=== PATIENT | female | born 1990 | race Two or more races ===

== ENCOUNTER 2024-09-17 10:25 | Emergency (ER) | payer MEDICAID, SELFPAY ==
[2024-09-17 10:43] VITALS: BP 110/70; PULSE 78; RESP 16; TEMP 37.2; O2SAT 100; BMI 28.5
--- NOTE | 2024-09-17 10:56 | PD.EDRME ---
Rapid Medical Screening Exam RME Arrival date/time: 09/17/24 10:25 34-year-old female presents to the emergency department complains of vaginal bleeding patient reports passing clots being approximately 13 weeks Chief Complaint: Vaginal Bleeding Time Seen by Provider: 09/17/24 10:27 Vital signs: Vital Signs Temperature 98.9 F 09/17/24 10:43 Pulse Rate 78 09/17/24 10:43 Respiratory Rate 16 09/17/24 10:43 Blood Pressure 110/70 09/17/24 10:43 Pulse Oximetry (%) 100 09/17/24 10:43 Oxygen Delivery Method Room Air 09/17/24 10:43
--- NOTE | 2024-09-17 11:06 | XR_ITS ---
Examination: Complete OB ultrasound, less than 14 weeks, transabdominal Date and time of exam: September 17, 2024 1154 hrs. Indications: Heavy vaginal bleeding beginning this morning Technique: Obstetrical ultrasound images less than 14 weeks performed via transabdominal imaging Findings: Uterus 12.3 cm endometrial stripe 2.5 cm No intrauterine gestation, no uterine mass Right ovary 3.7 cm arterial flow Left ovary 4.0 cm arterial flow Impression: No uterine mass or intrauterine gestation If retained parts of conception are a clinical consideration, suggest transvaginal pelvic sonography follow-up
[2024-09-17 11:17] LABS: Basophils % (Auto) 0 % (0-2.5); Eosinophils # (Auto) 0.1 Thou/mm3 (0.0-0.5); Eosinophils % (Auto) 1 % (0-10); Hematocrit 40.9 % (36.0-46.0); Hemoglobin 14.4 g/dL (12.0-16.0); Immature Granulocytes % (Auto) 0 % (0-0); Immature Granulocytes Auto 0.03 Thou/mm3 (0.00-0.00); Lymphocytes # (Auto) 1.8 Thou/mm3 (1.0-4.8); Lymphocytes % (Auto) 19 % (10-50); Mean Corpuscular HGB Conc 35.2 g/dl (31.0-37.0); Mean Corpuscular Hemoglobin 30.5 pg (25.0-35.0); Mean Corpuscular Volume 87 fL (80-100); Monocytes # (Auto) 0.4 Thou/mm3 (0.0-0.8); Monocytes % (Auto) 4 % (0-12); Neutrophils # (Auto) 7.2 Thou/mm3 (1.8-7.7); Neutrophils % (Auto) 76 % (37-80); Nucleated Red Blood Cell % 0 /100 WBC (0); Platelet Count 273 Thou/mm3 (140-440); RDW Standard Deviation 39.2 fL (36.4-46.3); Red Blood Count 4.72 Miln/mm3 (4.00-5.20); White Blood Count 9.6 Thou/mm3 (3.6-11.0)
--- NOTE | 2024-09-17 12:28 | PD.EDADULT ---
ED General RME/HPI General Chief complaint: Vaginal Bleeding Stated complaint: VAG BLEEDING, LOWER ABD CRAMPS Time Seen by Provider: 09/17/24 10:27 Arrival date/time: 09/17/24 10:25 CC: I think I passed my baby . Vaginal bleeding and low center abdominal cramping HPI patient is estimated 13 weeks G6, P4, who states that she passed a large clot this morning after experiencing spotting 2 days ago and then heavy bleeding this morning with low back pain abdominal cramping. Patient denies LOC LOC nausea vomiting or diarrhea. RME / HPI RME / HPI narrative: 09/17/24 10:25 34-year-old female presents to the emergency department complains of vaginal bleeding patient reports passing clots being approximately 13 weeks Related Data Home Medications ?Medication ?Instructions ?Recorded ?Confirmed No Known Home Medications 01/27/18 01/27/18 Allergies Allergy/AdvReac Type Severity Reaction Status Date / Time No Known Allergies Allergy Verified 01/27/18 13:48 Review of Systems Review of Systems Narrative Review of Systems: GEN: No fever, no chills, no weight loss EYES: No discharge, no visual changes, no pain HEENT: No ear pain, no congestion, no sore throat PULM: No shortness of breath, no cough, no congestion CV: No chest pain, no dyspnea on exertion, no palpitations GI: No nausea, no vomiting, no diarrhea, no pain, no constipation : No frequency, no urgency, no dysuria MUSC/SKEL: No joint pain, no back pain SKIN: No rash PSYCH: No hallucinations, no depression HEME/LYMPH: No easy bleeding or bruising tendencies NEURO: No weakness, no headache Past Medical History Social History SMOKING STATUS: Never smoker ED Exam Narrative Physical exam: [General: Obese not in cot no acute distress Head normocephalic HEENT: Within acceptable limits Neck is supple nontender Chest equal chest rise nontender to palpation Respiratory: Clear to auscultation no wheezes crackles or rubs CV: Rate rhythm is regular no murmurs rubs or clicks Abdomen is soft nontender no masses positive bowel sounds all 4 quadrants Back: No CVA tenderness no spinous process tenderness from cervical spine thoracic and lumbar spine Skin: Intact no petechiae rash induration ulceration or crepitus Extremities: Moving all extremity against resistance cap refill less than 2 seconds neurosensory intact Neuro: Awake alert oriented x3 Glascow coma 15 no focal deficits] Course Quality Measures none Orders Category Date Time Status US OB <= 14 weeks fetus Stat Exams 09/17/24 11:06 Completed ABO/RH Type Stat Lab 09/17/24 10:55 Completed Beta HCG,Quantitative Stat Lab 09/17/24 10:55 Completed CBC Stat Lab 09/17/24 10:55 Completed Comprehensive Metabolic Panel Stat Lab 09/17/24 10:55 Completed Referral Canopy Inspector NOW 09/17/24 12:56 Active Vital Signs Vital signs: Vital Signs Temperature 98.9 F 09/17/24 10:43 Pulse Rate 78 09/17/24 10:43 Respiratory Rate 16 09/17/24 10:43 Blood Pressure 110/70 09/17/24 10:43 Pulse Oximetry (%) 100 09/17/24 10:43 Oxygen Delivery Method Room Air 09/17/24 10:43 [facility] Patient data External records reviewed:: [facility] previous records Clinical information provided by:: patient Social determinants that could affect healthcare access:: none Patient has the following chronic illnesses:: None How is presenting disease/condition affected by chronic disease/condition?: uneffected by Evaluation data The following diagnostics were reviewed and interpreted by me:: lab results Lab and/or radiology exams considered but not ordered:: CBC shows no leukocytosis no anemia or thrombocytopenia Quantitative hCG is 6200 Ultrasound shows the vault is empty. . Interpretation Summary: SAB completed Medications Medications considered but not ordered:: None Medication administrations:: None Consultations Consultation(s) initiated? (list below): No Diagnosis Differential Diagnosis ED Complaint MDM: SAB incomplete, threatened miscarriage Most likely diagnosis given after review of the tests above:: SAB completed Admission Indicated Admission indicated?: not indicated Explain why admission is indicated or not indicated:: Stable for discharge Admission Request Was there a request for admission?: No Disposition Plan Disposition Plan: Discharge Discharge Attestation Discharge Attestation: The patient and all family members were given an opportunity to ask questions and understood the discharge instructions. Discharge instructions specifically effects, indications for sooner follow up or return to the emergency department, and the expected course of current diagnosis. Patient condition: Stable Medical Decision Making Differential Diagnosis Differential Diagnosis: SAB incomplete, threatened miscarriage Lab Data 09/17/24 10:55 09/17/24 10:55 Labs: Lab Results 02/26/25 Range/Units 10:55 WBC 9.6 (3.6-11.0) Thou/mm3 RBC 4.72 (4.00-5.20) Miln/mm3 Hgb 14.4 (12.0-16.0) g/dL Hct 40.9 (36.0-46.0) % MCV 87 (80-100) fL MCH 30.5 (25.0-35.0) pg MCHC 35.2 (31.0-37.0) g/dl RDW Std Deviation 39.2 (36.4-46.3) fL Plt Count 273 (140-440) Thou/mm3 Neut % (Auto) 76 (37-80) % Lymph % (Auto) 19 (10-50) % Kimball % (Auto) 4 (0-12) % Eos % (Auto) 1 (0-10) % Baso % (Auto) 0 (0-2.5) % Neut # (Auto) 7.2 (1.8-7.7) Thou/mm3 Lymph # (Auto) 1.8 (1.0-4.8) Thou/mm3 Kimball # (Auto) 0.4 (0.0-0.8) Thou/mm3 Eos # (Auto) 0.1 (0.0-0.5) Thou/mm3 Baso # (Auto) 0.0 (0.0-0.2) Thou/mm3 Immature Gran # (Auto) 0.03 H (0.00-0.00) Thou/mm3 Absolute Nucleated RBC 0.00 (0.00-0.00) Thou/mm3 Immature Gran % 0 (0-0) % Nucleated RBC % 0 (0) /100 WBC Sodium 139 (136-145) mMol/L Potassium 3.3 L (3.4-5.1) mMol/L Chloride 106 (98-107) mMol/L Carbon Dioxide 23.5 (20.0-31.0) mMol/L Anion Gap 10 (7-16) BUN 11 (9-23) mg/dL Creatinine 0.6 (0.6-1.3) mg/dL Estim Creat Clear Calc 110.1 (>60) mL/min eGFR > 60 (60 - ) See Note BUN/Creatinine Ratio 18 (12-20) Ratio Glucose 96 (74-106) mg/dL Calculated Osmolality 276 (275-295) Calcium 9.5 (8.3-10.6) mg/dL Corrected Calcium 9.5 (8.5-10.1) mg/dL Total Bilirubin 0.6 (0.3-1.2) mg/dL AST 24 (0-34) U/L ALT 23 (10-49) U/L Alkaline Phosphatase 87 (46-116) U/L Total Protein 7.1 (5.7-8.2) gm/dL Albumin 4.3 (3.5-5.0) gm/dL Globulin 2.8 (2.3-3.5) gm/dL Albumin/Globulin Ratio 1.5 (1.2-2.2) Beta HCG, Quant 6426 (<5.0) mIU/mL Blood Type O Positive Blood Bank Wristband ID Yes Discharge Plan Plan Patient Disposition: HOME (Self Care) Patient condition on transfer: Stable Prescriptions/Referrals Prescriptions/Med Rec: No Action No Known Home Medications Referrals: Cruzito Campuzano MD [Primary Care Provider] - In 1 week Problem List Clinical Impression: Miscarriage Patient/Caregiver Discharge Instructions Other Activity Instructions:: Follow-up with your PRINCIPAL CYBER ENGINEER in the next 4 to 5 days to get a recheck of your human growth hormone level. If there is a worsening of symptoms including heavy vaginal bleeding, fever vaginal pain or vaginal discharge or that is abnormal return the emergency room immediately for further evaluation. Education Materials: Miscarriage Trying Again, ED MISCARRIAGE Completed Print Language: Yi Stand Alone Forms: Zakia Award Info., Work/School Release, Patient Portal Info Letter BJ/NICKIE Supervising Physician BJ/NICKIE Supervising Physician: Beni Nathan ENP
--- NOTE | 2024-09-17 12:48 | PC.NURSE ---
PT MOVED FROM LOBBY TO ED ROOM 19 AT THIS TIME; WHILE PT AT ULTRASOUND, PT PASSED CONTENTS. CONTENTS AND POSSIBLE PLACENTA PLACED IN BIOHAZARD BUCKET WITH NS AND THEN PLACED IN BIOHAZARD BAG, PER SEB ZEPEDA'S ORDERS. CONTENTS MEASURED ABOUT 3CM IN LENGTH AND 1.5CM IN WIDTH. REFERRAL TO ANESTHESIOLOGIST PHYSICIAN MADE.
--- NOTE | 2024-09-17 12:57 | PC.NURSE ---
RN CALLED DONOR NETWORK AND SPOKE TO LI AT THIS TIME; PER LI, FETUS IS NOT A CANDIDATE A DONOR; REFERRAL # IS [id number].
[2024-09-17 12:59] VITALS: BP 106/64; PULSE 69; RESP 19; TEMP 37.4; O2SAT 100
--- NOTE | 2024-09-17 13:11 | PC.NURSE ---
PT OFFERED CAPACITY PLANNING ENGINEER/DIRECTOR PROSPECT SERVICES AT THIS TIME; PER PT, NO I DON'T WANT TO SPEAK TO A DIRECTOR PROSPECT OR A CAPACITY PLANNING ENGINEER RIGHT NOW.
[2024-09-17 13:15] LABS: Alanine Aminotransferase 23 U/L (10-49); Albumin, Serum 4.3 gm/dL (3.5-5.0); Albumin/Globulin Ratio 1.5 (1.2-2.2); Alkaline Phosphatase 87 U/L (46-116); Aspartate Amino Transferase 24 U/L (0-34); BUN/Creatinine Ratio 18 Ratio (12-20); Beta HCG,Quantitative 6426 mIU/mL (<5.0); Bilirubin,Total 0.6 mg/dL (0.3-1.2); Blood Urea Nitrogen 11 mg/dL (9-23); Calcium 9.5 mg/dL (8.3-10.6); Calcium (Corrected) 9.5 mg/dL (8.5-10.1); Carbon Dioxide 23.5 mMol/L (20.0-31.0); Creatinine (Component) 0.6 mg/dL (0.6-1.3); Estimated Creatinine Clearance 110.1 mL/min (>60); Globulin 2.8 gm/dL (2.3-3.5); Glucose 96 mg/dL (74-106); Total Protein 7.1 gm/dL (5.7-8.2); eGFR > 60 See Note
[2024-09-17 13:38] LABS: Anion Gap 10 (7-16); Chloride 106 mMol/L (98-107); Osmolality,Calculated 276 (275-295); Potassium 3.3 mMol/L (3.4-5.1); Sodium 139 mMol/L (136-145)
--- NOTE | 2024-09-17 13:51 | PC.CC ---
Ingris CALVILLO was consulted by DEIDRE Graham to provide emotional support to patient and significant other, Tunde for demise. Ingris CALVILLO made [id number] contact with patient. ROGERW introduced self, role, and reason for visit.?Patient appeared alert and oriented to self, location, and situation.?ASW provided emotional support to patient and provided [facility] [employer] support group information to patient and significant other, Tunde. Patient and SO were receptive to information. Patient reports she has 3 other a 15 year-old daughter and two sons ages 13 and 7. Patient reports she has emotional support from extended family.
[2024-09-17 14:05] VITALS: BP 115/77; PULSE 76; RESP 16; TEMP 37.2; O2SAT 100
--- NOTE | 2024-09-17 15:14 | PC.NURSE ---
RN SPOKE TO PT PRIOR TO LEAVING FACILITY AND PT DECIDED TO HAVE REMNANTS SENT TO PATHOLOGY. RN SEND REMNANTS AND POSSIBLE PLACENTA TO PATHOLOGY LAB AT THIS TIME.
== END 2024-09-17 15:02 | disposition home or self-care (01) ==
PROVIDERS: Nurse Practitioner Primary Care; Emergency Provider Emergency Medicine; PCP Family Medicine
DX: O03.9 Complete or unspecified spontaneous abortion without complication (principal)
CPT/HCPCS: 36415; 76801; 80053; 84702; 85025; 86900; 86901; 99284

== ENCOUNTER 2025-01-19 02:59 | Emergency (ER) | payer MEDICAID, SELFPAY ==
[2025-01-19 03:00] VITALS: BMI 28.3
[2025-01-19 03:10] VITALS: BP 119/81; PULSE 84; RESP 17; TEMP 37.2; O2SAT 98
--- NOTE | 2025-01-19 03:19 | PD.EDRME ---
Rapid Medical Screening Exam RME Arrival date/time: 01/19/25 02:59 Chief Complaint: Abdominal Pain Time Seen by Provider: 01/19/25 03:07 Vital signs: Vital Signs Temperature 98.9 F 01/19/25 03:10 Pulse Rate 84 01/19/25 03:10 Respiratory Rate 17 01/19/25 03:10 Blood Pressure 119/81 01/19/25 03:10 Pulse Oximetry (%) 98 01/19/25 03:10 Oxygen Delivery Method Room Air 01/19/25 03:10 RME Narrative: Pelvic cramping since last night. No vaginal bleeding. Patient reports 7 weeks OB. LMP 5/9. A2
[2025-01-19 03:42] LABS: Basophils % (Auto) 0 % (0-2.5); Eosinophils # (Auto) 0.1 Thou/mm3 (0.0-0.5); Eosinophils % (Auto) 1 % (0-10); Hematocrit 38.7 % (36.0-46.0); Hemoglobin 13.9 g/dL (12.0-16.0); Immature Granulocytes % (Auto) 0 % (0-0); Immature Granulocytes Auto 0.02 Thou/mm3 (0.00-0.00); Lymphocytes # (Auto) 2.1 Thou/mm3 (1.0-4.8); Lymphocytes % (Auto) 25 % (10-50); Mean Corpuscular HGB Conc 35.9 g/dl (31.0-37.0); Mean Corpuscular Hemoglobin 30.7 pg (25.0-35.0); Mean Corpuscular Volume 85 fL (80-100); Monocytes # (Auto) 0.5 Thou/mm3 (0.0-0.8); Monocytes % (Auto) 6 % (0-12); Neutrophils # (Auto) 5.8 Thou/mm3 (1.8-7.7); Neutrophils % (Auto) 69 % (37-80); Nucleated Red Blood Cell % 0 /100 WBC (0); Platelet Count 265 Thou/mm3 (140-440); RDW Standard Deviation 36.7 fL (36.4-46.3); Red Blood Count 4.53 Miln/mm3 (4.00-5.20); White Blood Count 8.5 Thou/mm3 (3.6-11.0)
[2025-01-19 03:57] LABS: Alanine Aminotransferase 26 U/L (10-49); Albumin, Serum 4.3 gm/dL (3.5-5.0); Albumin/Globulin Ratio 1.6 (1.2-2.2); Alkaline Phosphatase 68 U/L (46-116); Anion Gap 7 (7-16); Aspartate Amino Transferase 24 U/L (0-34); BUN/Creatinine Ratio 14 Ratio (12-20); Bilirubin,Total 0.6 mg/dL (0.3-1.2); Blood Urea Nitrogen 10 mg/dL (9-23); Calcium 9.1 mg/dL (8.3-10.6); Calcium (Corrected) 9.1 mg/dL (8.5-10.1); Carbon Dioxide 24.8 mMol/L (20.0-31.0); Chloride 107 mMol/L (98-107); Creatinine (Component) 0.7 mg/dL (0.6-1.3); Globulin 2.7 gm/dL (2.3-3.5); Glucose 86 mg/dL (74-106); Osmolality,Calculated 275 (275-295); Potassium 3.3 mMol/L (3.4-5.1); Sodium 139 mMol/L (136-145); eGFR > 60 See Note
[2025-01-19 04:09] LABS: Collection Type, Urine Clean Catch
[2025-01-19 04:12] LABS: Beta HCG,Quantitative 3768 mIU/mL (<5.0)
[2025-01-19 04:13] LABS: Bilirubin,Urine Negative (Negative); Blood,Urine Negative (Negative); Clarity,Urine Clear (Clear/Hazy); Color,Urine Yellow (Lt Yel-Yel); Glucose, Urine Negative (Negative); Hyaline Casts,Urine < 1 /hpf (0-1); Ketones,Urine 2+ (Negative); Leukocyte Esterase,Urine Negative (Negative); Nitrite,Urine Negative (Negative); Protein,Urine 1+ (Neg - Trace); RBC,Urine 7 /hpf (0-3); Squamous Epithelial Cell,Urine 3 /hpf (0-5); WBC,Urine 1 /hpf (0-5)
--- NOTE | 2025-01-19 04:15 | XR_ITS ---
Examination: OB Transvaginal ultrasound of the pelvis, complete Technique: Transvaginal sonographic images pelvis performed using gilbert scale imaging Exam date and time: January 19, 2025, 0528 hours INDICATIONS: Vaginal bleeding and pelvic pain onset today FINDINGS: Uterus 10.2 cm endometrial stripe 0.95 cm No uterine mass or intrauterine gestation Right ovary 2.8 cm arterial flow Left ovary 2.8 cm arterial flow IMPRESSION: No uterine mass or intrauterine gestation
[2025-01-19 04:19] LABS: HCG Qualitative,Urine Positive
--- NOTE | 2025-01-19 04:44 | PD.EDABDPN ---
ED Abdominal Pain RME/HPI General Chief Complaint: Abdominal Pain Stated complaint: ABD CRAMPING, 7 WKS Time seen by provider: 01/19/25 03:07 Arrival date/time: 01/19/25 02:59 RME / HPI RME / HPI narrative: Pelvic cramping since last night. No vaginal bleeding. Patient reports 7 weeks OB. LMP 11/28. Emiliano -------- Dr. Yan?s Main ED Evaluation: 34yo female A2 who is ~7 weeks presents to the ED for a chief complaint of pelvic cramping x yesterday. Patient states she started having intermittent pelvic cramping yesterday, reporting it became more persistent today, so she came in for evaluation. Patient denies any vaginal bleeding, fever, chills, cough, chest pain, shortness of breath or any other associated symptoms. Denies any tobacco, alcohol or illicit drug use. She is taking vitamins. Denies any recent travel. NKA. Related Data Home Medications ?Medication ?Instructions ?Recorded ?Confirmed No Known Home Medications 01/27/18 01/27/18 Allergies Allergy/AdvReac Type Severity Reaction Status Date / Time No Known Allergies Allergy Verified 01/19/25 03:00 Review of Systems Review of Systems Systems Reviewed: All systems reviewed, normal except as documented Past Medical History Past Medical History CARDIAC: Negative Congestive Heart Failure RESPIRATORY: Negative Chronic Obstructive Pulmonary Disease (COPD) GENITOURINARY: Negative Renal Disease ENDOCRINE: Negative Diabetes Mellitus Type 1 or Diabetes Mellitus Type 2 Family History FAMILY HISTORY: Positive Family Cancer (PT'S GRANDMA LUNG CANCER) Social History SMOKING STATUS: Never smoker ED Exam Narrative Physical exam: GEN. APPEARANCE: The patient is alert awake oriented X-3 in no distress, lying down comfortably, does not look ill/toxic. Patient has good eye contact. Patient is cooperative. VITALS: All vitals were reviewed and the pulse ox is 98% on room air which is normal according to my interpretation. HEENT: Normocephalic, atraumatic. Pupils are equal and reactive. Oral mucosa is moist. Patent Nares NECK: Supple, nontender, no thyromegaly, no meningismus, no JVD CHEST: Symmetrical, atraumatic, and with equal expansion , Nontender on palpation no deformity and no crepitus. CARDIOVASCULAR: Heart regular rhythm no murmur or gallop rub or extra beats. LUNGS: Clear to auscultation bilaterally with symmetrical chest rise. No laboring tachypnea or wheezing. No intercostal subcostal retraction. No rales and no rhonchi. ABDOMEN: Soft, flat, nontender to palpation, no guarding or rebound tenderness. There are no abnormal masses palpated. Active and normal bowel sounds. EXTREMITIES: Nontender. No edema. No cyanosis. Patient is able to move all 4 extremities well, with full ROM and good CSM. SKIN: Warm and dry, no jaundice or rashes noted. NEURO: Patient is SHABAZZ x 4, Cranial nerves II through XII grossly intact. There is no focal neurologic deficits noted. GCS is 15, PNS and CONCRETE STONE FINISHER appear grossly intact. PSYCHIATRIC: Patient is in normal mood and affect. Course Quality Measures none Orders Category Date Time Status US OB transvaginal Stat Exams 01/19/25 04:15 Taken Beta HCG,Quantitative Stat Lab 01/19/25 03:24 Completed CBC Stat Lab 01/19/25 03:24 Completed CMP [Comprehensive Metabolic Panel] Stat Lab 01/19/25 03:24 Completed HCG Qualitative,Urine Stat Lab 01/19/25 03:38 Completed UA [Urinalysis] Stat Lab 01/19/25 03:38 Completed Vital Signs Vital signs: Vital Signs Temperature 98.9 F 01/19/25 03:10 Pulse Rate 84 01/19/25 03:10 Respiratory Rate 17 01/19/25 03:10 Blood Pressure 119/81 01/19/25 03:10 Pulse Oximetry (%) 98 01/19/25 03:10 Oxygen Delivery Method Room Air 01/19/25 03:10 Abdominal Pain MDM MDM Narrative MDM Narrative:: Scribe Attestation: 01/19/25 - Shalonda Fraga am scribing for and in the presence of Dr. Yan. Patient is a 34-year-old female aborta 2 at approximately 7 weeks gestation is in the emergency department with concerns for abdominal pain. Patient denies any vaginal bleeding. Vital signs and exam as listed. Concern for threatened miscarriage, urinary tract infection, pancreatitis among others we did labs, will be ultrasound. Labs without acute hematologic or significant metabolic abnormality. At this time patient presented transition care over to oncoming provider pending OB ultrasound and safe dispo Patient data External records reviewed:: [facility] previous records (Per chart review, patient was seen here on 09/17/24 for miscarriage.) Clinical information provided by:: patient Social determinants that could affect healthcare access:: none Patient has the following chronic illnesses:: none How is presenting disease/condition affected by chronic disease/condition?: no chronic disease Evaluation data The following diagnostics were reviewed and interpreted by me:: lab results and radiology exam(s) Lab and/or radiology exams considered but not ordered:: none Interpretation Summary: CBC normal, Potassium 3.3, HCG is negative, UA shows 1+ protein and 2+ ketones. Ultrasound pending at signout. Medications / Prescriptions Medications or Prescriptions considered but not ordered:: none Medication administrations:: none Consultations Consultation(s) initiated? (list below): No Diagnosis Differential diagnosis abdominal pain: pancreatitis and other (threatened , UTI) Most likely diagnosis given after review of the tests above:: see clinical impression below Admission Indicated Admission indicated?: not indicated Admission Request Was there a request for admission?: No Disposition Plan Disposition Plan: other (specify) (Signed out to the next oncoming provider at 0600 pending OB transvaginal ultrasound.) Discharge Plan Prescriptions/Referrals Prescriptions/Med Rec: No Action No Known Home Medications Referrals: Cruzito Campuzano MD [Primary Care Provider] - In 1 week Problem List Clinical Impression: Pelvic pain Patient/Caregiver Discharge Instructions Print Language: Armenian
--- NOTE | 2025-01-19 06:33 | PRELIM_ITS ---
Pelvic ultrasound (transvaginal). January 19, 2025 0528 hours Clinical history: 7 weeks ob, pelvic pain Technique: Real-time ultrasound was performed using Duplex scanning including arterial inflow, venous outflow, color and spectral Doppler analysis of both ovaries. Comparison: No prior study is available for comparison. Findings: The uterus is normal in size measuring 10.2 x 6.2 x 7.2 cm. The endometrium is thickened and measures 9 cm. No intrauterine gestational sac is seen at this time. There are small cysts in the cervix, the largest measuring 0.8 x 0.5 x 0.8 cm, likely representing nabothian cysts. The right ovary measures 2.8 x 1.5 x 2 cm and is unremarkable. The left ovary measures 2.8 x 1.6 x 2.6 cm and is unremarkable. No adnexal mass is demonstrated. There is trace free fluid in the cul-de-sac. Impression: No evidence of intrauterine gestation at this time. Possibilities include very early intrauterine , recent or occult ectopic gestation. Recommend correlation with serum beta hCG and sonographic follow up. No evidence of ovarian torsion on the submitted images. Other findings as described above. Report Electronically Signed By: Mars Agosto 01/19/2025 6:33:17 AM [EST]
[2025-01-19 07:55] VITALS: BP 117/65; PULSE 71; RESP 18; TEMP 36.9; O2SAT 100
== END 2025-01-19 07:55 | disposition home or self-care (01) ==
PROVIDERS: Physician Assistant; Emergency Provider Emergency Medicine; PCP Family Medicine
DX: O26.891 Other specified pregnancy related conditions, first trimester (principal); R10.2 Pelvic and perineal pain; Z3A.01 Less than 8 weeks gestation of pregnancy
CPT/HCPCS: 36415; 76817; 80053; 81001; 81025; 84702; 85025; 99284

== ENCOUNTER 2025-01-21 06:07 | Day surgery (SDC) | payer MEDICAID, SELFPAY ==
[2025-01-21] VITALS (7 sets, daily range): BP systolic 87–110; BP diastolic 51–67; PULSE 78–102; RESP 15–20; TEMP 36.4–36.7; O2SAT 99–100; BMI 25.5
--- NOTE | 2025-01-21 06:21 | PD.EDRME ---
Rapid Medical Screening Exam RME Arrival date/time: 01/21/25 06:07 34-year-old female with no known medical history presents to the emergency room with a chief complaint of dizziness, left-sided pelvic pain, vaginal bleeding x 2 days. Patient is currently 7 weeks . I have greeted and performed a focused initial assessment of this patient. A comprehensive ED assessment and evaluation of the patient, analysis of all test results, and completion of the medical decision making process will be conducted by additional ED providers. Chief Complaint: Abdominal Pain Time Seen by Provider: 01/21/25 06:10 Vital signs: Vital Signs Temperature 97.9 F 01/21/25 06:08 Pulse Rate 96 01/21/25 06:08 Respiratory Rate 17 01/21/25 06:08 Blood Pressure 87/55 L 01/21/25 06:08 Pulse Oximetry (%) 99 01/21/25 06:08 Oxygen Delivery Method Room Air 01/21/25 06:08 Vital signs reviewed by provider: Yes
[2025-01-21] MEDS: SODIUM CHLORIDE 0.9% 1000 ML 1,000 ML 999 ML IV (06:41)
[2025-01-21 06:50] LABS: Basophils # (Auto) 0.0 Thou/mm3 (0.0-0.2); Basophils % (Auto) 0 % (0-2.5); Eosinophils # (Auto) 0.1 Thou/mm3 (0.0-0.5); Eosinophils % (Auto) 2 % (0-10); Hematocrit 39.0 % (36.0-46.0); Hemoglobin 13.7 g/dL (12.0-16.0); Immature Granulocytes Auto 0.03 Thou/mm3 (0.00-0.00); Lymphocytes # (Auto) 2.8 Thou/mm3 (1.0-4.8); Lymphocytes % (Auto) 30 % (10-50); Mean Corpuscular HGB Conc 35.1 g/dl (31.0-37.0); Mean Corpuscular Hemoglobin 30.8 pg (25.0-35.0); Mean Corpuscular Volume 88 fL (80-100); Monocytes # (Auto) 0.5 Thou/mm3 (0.0-0.8); Monocytes % (Auto) 6 % (0-12); Neutrophils # (Auto) 5.7 Thou/mm3 (1.8-7.7); Neutrophils % (Auto) 62 % (37-80); Nucleated Red Blood Cell # 0.00 Thou/mm3 (0.00-0.00); Nucleated Red Blood Cell % 0 /100 WBC (0); Platelet Count 238 Thou/mm3 (140-440); RDW Standard Deviation 38.2 fL (36.4-46.3); Red Blood Count 4.45 Miln/mm3 (4.00-5.20); White Blood Count 9.2 Thou/mm3 (3.6-11.0)
--- NOTE | 2025-01-21 06:52 | PD.EDABDPN ---
ED Abdominal Pain RME/HPI General Chief Complaint: Abdominal Pain Stated complaint: LOWER ABD PAIN,SPOTTING Time seen by provider: 01/21/25 06:10 Arrival date/time: 01/21/25 06:07 RME / HPI RME / HPI narrative: 01/21/25 06:07 34-year-old female with no known medical history presents to the emergency room with a chief complaint of dizziness, left-sided pelvic pain, vaginal bleeding x 2 days. Patient is currently 7 weeks . I have greeted and performed a focused initial assessment of this patient. A comprehensive ED assessment and evaluation of the patient, analysis of all test results, and completion of the medical decision making process will be conducted by additional ED providers. DR. HICKEY MAIN ED EVALUATION 34 year old female patient who is currently 7 weeks gestational age, A2, presents to the ED for evaluation of worsening pelvic pain and vaginal bleeding beginning 2 days ago. Pain described as cramping in sensation that is located most to the left lower abdomen/pelvic region. Accompanied by dizziness and nausea. Patient reports she was evaluated here 2 days ago when symptoms first began. During ED visit she had a positive test with an ultrasound showing no intrauterine . Was advised to follow up in 2 days for repeat hcg and ultrasound. Denies fevers, chills, or urinary symptoms. No previous abdominal surgeries reported. Related Data Previous Rx's ?Medication ?Instructions ?Recorded hydrocodone 5 mg-acetaminophen 325 1 tab PO Q6H PRN pain #20 tabs 01/21/25 mg tablet Allergies Allergy/AdvReac Type Severity Reaction Status Date / Time No Known Allergies Allergy Verified 01/21/25 06:11 Review of Systems Review of Systems Systems Reviewed: All systems reviewed, normal except as documented Past Medical History Past Medical History CARDIAC: Negative Congestive Heart Failure RESPIRATORY: Negative Chronic Obstructive Pulmonary Disease (COPD) GENITOURINARY: Negative Renal Disease ENDOCRINE: Negative Diabetes Mellitus Type 1 or Diabetes Mellitus Type 2 Family History FAMILY HISTORY: Positive Family Cancer (PT'S GRANDMA LUNG CANCER) Social History SMOKING STATUS: Never smoker ED Exam Narrative Physical exam: GENERAL APPEARANCE: alert and oriented x 4, well-developed, well-nourished HEENT: Normocephalic, atraumatic; pupils equal, round, reactive to light; EOMI; mucous membranes pink, moist; oropharynx clear NECK: Supple LUNGS: CTABL; no wheezes, no rales, no rhonchi HEART: Regular rate, regular rhythm; normal S1, S2; no murmurs ABDOMEN: non distended; normal BS; soft, tenderness in the lower abdomen bilaterally, no guarding, no rebound; no masses, no organomegaly, no hernia BACK: no CVA tenderness EXTREMITIES: atraumatic; no edema NEUROLOGIC: awake; alert and oriented x4; cranial nerves II-XII grossly intact; no focal sensory or motor deficits PSYCHIATRIC: appropriate mood and affect SKIN: warm, dry, normal color; no rashes Course Quality Measures none Orders Category Date Time Status Patient Condition Routine Admission 01/21/[address] in Surgical Day Care Routine Admission 01/21/25 07:37 Active Consent [Obtain Written Consent For:] .NOW Care 01/21/25 07:23 Completed DC Home When Criteria Met . Care 01/21/25 07:43 Completed Insert IV STAT Care 01/21/25 06:23 Completed Discharge Routine Discharge 01/21/25 08:34 Active Beta HCG,Quantitative Stat Lab 01/21/25 06:30 Completed CBC Stat Lab 01/21/25 06:30 Completed CMP [Comprehensive Metabolic Panel] Stat Lab 01/21/25 06:30 Completed Type and Screen Stat Lab 01/21/25 07:29 Completed Acetaminophen Ivpb [Ofirmev Inj] 100 ml Med 01/21/25 08:14 Discontinued IV .STK-MED Albuterol/Ipratr Rt Negar [Duoneb Rt Negar] Med 01/21/25 07:43 Discontinued 3 ml INH Q4HRRT PRN Bupivacaine Mpf 0.25% [Sensorcaine-Mpf Inj 0.25%] Med 01/21/25 07:17 Discontinued 30 ml .ROUTE .STK-MED ONE Bupivacaine Mpf/Epi 0.5% [Sensorcaine-Mpf Inj 0.5% w/ Med 01/21/25 07:17 Discontinued Epi] 30 ml .ROUTE .STK-MED ONE Dexamethasone Inj [Decadron Inj] Med 01/21/25 07:21 Discontinued 10 mg .ROUTE .STK-MED ONE Esmolol HCl [Brevibloc Inj] Med 01/21/25 08:07 Discontinued 100 mg .ROUTE .STK-MED ONE Famotidine Inj [Pepcid Inj] Med 01/21/25 07:22 Discontinued 20 mg .ROUTE .STK-MED ONE HYDROmorphone INJ [Dilaudid Inj] Med 01/21/25 07:43 Discontinued 0.2 mg IVP Q5M PRN HYDROmorphone INJ [Dilaudid Inj] Med 01/21/25 07:53 Discontinued 2 mg .ROUTE .STK-MED ONE Lidocaine 2% Pf 5 ml [Xylocaine 2% Pf 5 ml] Med 01/21/25 07:21 Discontinued 5 ml .ROUTE .STK-MED ONE Midazolam Inj [Versed Inj] Med 01/21/25 07:38 Discontinued 2 mg .ROUTE .STK-MED ONE Morphine Inj Med 01/21/25 07:24 Discontinued 4 mg IVP X1 ONE Ondansetron Inj [Zofran Inj] Med 01/21/25 07:21 Discontinued 4 mg .ROUTE .STK-MED ONE Ondansetron Inj [Zofran Inj] Med 01/21/25 07:24 Discontinued 4 mg IVP X1 ONE Ondansetron Inj [Zofran Inj] Med 01/21/25 07:43 Discontinued 4 mg IVP X1 ONE Propofol Inj [Diprivan Inj] Med 01/21/25 07:21 Discontinued 200 mg IV .STK-MED ONE Rocuronium Inj [Zemuron Inj] Med 01/21/25 07:21 Discontinued 100 mg .ROUTE .STK-MED ONE Sodium Chloride 0.9% 1000 ml [Ns] 1,000 ml Med 01/21/25 06:23 Discontinued IV 999 mls/hr Sugammadex Inj [Bridion Inj] Med 01/21/25 07:22 Discontinued 200 mg .ROUTE .STK-MED ONE Tranexamic Acid Inj Med 01/21/25 07:58 Discontinued 1,000 mg .ROUTE .STK-MED ONE fentaNYL INJ [Sublimaze Inj] Med 01/21/25 07:22 Discontinued 100 mcg .ROUTE .STK-MED ONE fentaNYL INJ [Sublimaze Inj] Med 01/21/25 07:43 Discontinued 50 mcg IV Q5M PRN Code Status Routine Oth 01/21/25 07:02 Completed Oxygen Delivery PRN RT 01/21/25 07:43 Completed Vital Signs Vital signs: Vital Signs Temperature 97.9 F 01/21/25 06:08 Pulse Rate 96 01/21/25 06:08 Respiratory Rate 17 01/21/25 06:08 Blood Pressure 87/55 L 01/21/25 06:08 Pulse Oximetry (%) 99 01/21/25 06:08 Oxygen Delivery Method Room Air 01/21/25 06:08 Pulse ox is 99% on room air which is adequate. Abdominal Pain MDM MDM Narrative MDM Narrative:: Tory Fraga, ashu scribing for and in the presence of Dr. Hickey. Patient data External records reviewed:: [facility] previous records (I reviewed ED visit on 01/19/2025. HCG level at that time was 3,765 and pelvic US was negative for IUP. ) Clinical information provided by:: patient Social determinants that could affect healthcare access:: none Patient has the following chronic illnesses:: Previous pregnancies, currently 7 weeks gestational age, A2. How is presenting disease/condition affected by chronic disease/condition?: uneffected by Evaluation data The following diagnostics were reviewed and interpreted by me:: lab results Lab and/or radiology exams considered but not ordered:: None Interpretation Summary: CBC unremarkable, H/H is within normal limits Medications / Prescriptions Medications or Prescriptions considered but not ordered:: None Medication administrations:: Medication Administration History Discontinued Medications Albuterol/Ipratropium (Albuterol/Ipratropium (Duoneb) Rt Negar 3 Ml Nebu) 3 ml INH Q4HRRT PRN PRN Reason: SHORTNESS OF BREATH Stop: 02/20/25 07:42 Bupivacaine HCl (Bupivacaine Mpf 0.25% 30 Ml Vial) Confirm Administered Dose 30 ml .ROUTE .STK-MED ONE Stop: 01/21/25 07:18 Bupivacaine HCl/Epinephrine Bitart (Bupivacaine Mpf/Epi 0.5% 30 Ml Vial 1:200,000) Confirm Administered Dose 30 ml .ROUTE .STK-MED ONE Stop: 01/21/25 07:18 Dexamethasone Sodium Phosphate (Dexamethasone Sod Phos Inj 10 Mg/Ml Vial) Confirm Administered Dose 10 mg .ROUTE .STK-MED ONE Stop: 01/21/25 07:22 Esmolol HCl (Esmolol Inj 10 Mg/Ml Vial 10 Ml) Confirm Administered Dose 100 mg .ROUTE .STK-MED ONE Stop: 01/21/25 08:08 Famotidine (Famotidine Inj 10 Mg/Ml Vial 2 Ml) Confirm Administered Dose 20 mg .ROUTE .STK-MED ONE Stop: 01/21/25 07:23 Fentanyl Citrate (Fentanyl Cit Inj 50 Mcg/Ml Amp 2ml) Confirm Administered Dose 100 mcg .ROUTE .STK-MED ONE Stop: 01/21/25 07:23 Fentanyl Citrate (Fentanyl Cit Inj 50 Mcg/Ml Amp 2ml) 50 mcg IV Q5M PRN; Protocol PRN Reason: PAIN SCALE 4-10(Mod-Sev Stop: 01/21/25 09:43 Hydromorphone HCl (Hydromorphone Inj 2 Mg/Ml Vial) 0.2 mg IVP Q5M PRN; Protocol PRN Reason: PAIN SCALE 4-10(Mod-Sev Stop: 01/21/25 09:43 Hydromorphone HCl (Hydromorphone Inj 2 Mg/Ml Vial) Confirm Administered Dose 2 mg .ROUTE .STK-MED ONE Stop: 01/21/25 07:54 Sodium Chloride (Ns) 1,000 mls @ 999 mls/hr IV .Q1H1M ONE Stop: 01/21/25 07:23 Last Infusion: 01/21/25 07:42 Dose: Infused Documented By: Admin: 01/21/25 06:41 Dose: 999 mls/hr Documented By: SAMUEL Acetaminophen (Ofirmev Inj) Confirm Administered Dose 100 mls @ ud IV .STK-MED ONE Stop: 01/21/25 08:15 Lidocaine HCl (Lidocaine Inj Pf 2% 5 Ml Vial) Confirm Administered Dose 5 ml .ROUTE .STK-MED ONE Stop: 01/21/25 07:22 Midazolam HCl (Midazolam Inj 1 Mg/Ml Vial 2 Ml) Confirm Administered Dose 2 mg .ROUTE .STK-MED ONE Stop: 01/21/25 07:39 Morphine Sulfate (Morphine Sulf Inj 10 Mg/Ml Vial) 4 mg IVP X1 ONE Stop: 01/21/25 07:25 Last Admin: 01/21/25 07:37 Dose: Not Given Documented By: CHRIS Non-Admin Reason: Cancelled by Provider Ondansetron HCl (Ondansetron Inj 2 Mg/Ml Inj 2 Ml) 4 mg IVP X1 ONE; Protocol Stop: 01/21/25 07:25 Last Admin: 01/21/25 07:37 Dose: Not Given Documented By: CHRIS Non-Admin Reason: Cancelled by Provider Ondansetron HCl (Ondansetron Inj 2 Mg/Ml Inj 2 Ml) Confirm Administered Dose 4 mg .ROUTE .STK-MED ONE Stop: 01/21/25 07:22 Ondansetron HCl (Ondansetron Inj 2 Mg/Ml Inj 2 Ml) 4 mg IVP X1 ONE; Protocol Stop: 01/21/25 07:44 Propofol (Propofol Inj 10 Mg/Ml Vial 20 Ml) Confirm Administered Dose 200 mg IV .STK-MED ONE Stop: 01/21/25 07:22 Rocuronium [place] (Rocuronium Inj 10 Mg/Ml Vial 10 Ml) Confirm Administered Dose 100 mg .ROUTE .STK-MED ONE Stop: 01/21/25 07:22 Sugammadex Sodium (Sugammadex Inj 100 Mg/Ml 2ml Vial) Confirm Administered Dose 200 mg .ROUTE .STK-MED ONE Stop: 01/21/25 07:23 Tranexamic Acid (Tranexamic Acid Inj 1,000 Mg/10 Ml Vial) Confirm Administered Dose 1,000 mg .ROUTE .STK-MED ONE Stop: 01/21/25 07:59 See above Consultations Consultation(s) initiated? (list below): Yes Consultation #1 (Physician, Specialty, Details): I spoke with OBGYN Dr. Joya. Discussed patients PMHx, HPI, ED course, exam findings, labs results. States he admit the patient to [facility]. Time: 06:54 Diagnosis Differential diagnosis abdominal pain: abdominal pain and other (ectopic ) Most likely diagnosis given after review of the tests above:: Ectopic Admission Indicated Admission indicated?: indicated Admission Request Was there a request for admission?: Yes Admission Attestation Admission request attestation: Discussed case with [] from Hospitalist service regarding admission. Discussed patients ED course, exam findings, labs, and radiology results. The Hospitalist [agrees,declines] to accept the patient for admission. Disposition Plan Disposition Plan: Admit (to OBGYN ) Discharge Plan Plan Patient Disposition: Admit Acute Care w/in Hospital Patient condition on transfer: Stable Problem List Clinical Impression: Ectopic Patient/Caregiver Discharge Instructions Discharge Activity: activity as tolerated Other Activity Instructions:: Follow up office with Dr Joya in 1 week.
--- NOTE | 2025-01-21 07:25 | ESHP_ITS ---
Documentation for date of: 01/21/25 PROPULSION SYSTEMS ENGINEER - HPI History of Present Illness History of present illness: Ms. GOODWIN is a 34 year old female LMP 11/24 with a HCG of > 3000 and no IUP on TVS done 3 days ago presents to ER complaining of severe left lower quadrant pain and is found to he hypotensive. She had vaginal spotting 3 days ago and that is what brought her to the emergency room. She was sent home and presented today with worsening left lower quadrant pain. 3 previous full-term normal vaginal deliveries 2 previous spontaneous abortions No past surgical history No known drug allergies Family history grandmother has lung cancer Social history denies any alcohol drug use or smoking Review of Systems Review of Systems Narrative Review of Systems: Denies any chest pain palpitation shortness of breath or cough or fever or lower extremity pain Meds Home Medications and Allergies Home Medications ?Medication ?Instructions ?Recorded ?Confirmed ?Type No Known Home Medications 01/27/18 0703/09 History Allergies Allergy/AdvReac Type Severity Reaction Status Date / Time No Known Allergies Allergy Verified 01/21/25 06:11 Exam - PROPULSION SYSTEMS ENGINEER Vital Signs Temp Pulse Resp BP Pulse Ox O2 Del Method 97.9 F 96 17 87/55 L 99 Room Air 01/21/25 06:08 01/21/25 06:08 01/21/25 06:08 01/21/25 06:08 01/21/25 06:08 01/21/25 06:08 Routine Respiratory Exam Comments: Clear to auscultation bilaterally Routine Cardiovascular Exam Comments: Regular rate and rhythm Routine Abdominal Exam Comments: Tender left lower quadrant, mild distention Routine Extremities Exam Comments: Nontender or edema Routine Skin Exam Comments: No gross rashes or lesions PROPULSION SYSTEMS ENGINEER - Results Labs 01/21/25 06:30 01/21/25 06:30 Labs: Short CBC 01/21/25 Range/Units 06:30 WBC 9.2 (3.6-11.0) Thou/mm3 Hgb 13.7 (12.0-16.0) g/dL Hct 39.0 (36.0-46.0) % Plt Count 238 (140-440) Thou/mm3 Impressions Impression: Ectopic suspect left fallopian tube Diagnostic laparoscopy, possible left or right salpingostomy, possible left or right salpingectomy possible laparotomy Informed consent was obtained. The patient was made aware of the risk, complications, alternatives and benefits of the proposed procedure and she agrees. Quality Measures Quality Measures none
--- NOTE | 2025-01-21 07:26 | PC.NURSE ---
Received report from Joshua JIANG and assumed care of patient. Patient states pain 03/01.
[2025-01-21 07:33] LABS: Alanine Aminotransferase 30 U/L (10-49); Albumin, Serum 4.2 gm/dL (3.5-5.0); Albumin/Globulin Ratio 1.6 (1.2-2.2); Alkaline Phosphatase 68 U/L (46-116); Anion Gap 8 (7-16); Aspartate Amino Transferase 28 U/L (0-34); BUN/Creatinine Ratio 13 Ratio (12-20); Beta HCG,Quantitative 4346 mIU/mL (<5.0); Bilirubin,Total 0.6 mg/dL (0.3-1.2); Blood Urea Nitrogen 10 mg/dL (9-23); Calcium 9.2 mg/dL (8.3-10.6); Calcium (Corrected) 9.2 mg/dL (8.5-10.1); Carbon Dioxide 24.1 mMol/L (20.0-31.0); Chloride 108 mMol/L (98-107); Creatinine (Component) 0.8 mg/dL (0.6-1.3); Estimated Creatinine Clearance 78.4 mL/min (>60); Globulin 2.6 gm/dL (2.3-3.5); Glucose 111 mg/dL (74-106); Osmolality,Calculated 279 (275-295); Potassium 3.6 mMol/L (3.4-5.1); Sodium 140 mMol/L (136-145); Total Protein 6.8 gm/dL (5.7-8.2); eGFR > 60 See Note
--- NOTE | 2025-01-21 08:34 | SUR.PHASEI ---
0834 Patient arrived to recovery resting comfortably in [facility], on oxygen 6L via oxy mask with an oral airway in place, breathing unlabored, vital signs stable, dressing intact to lower abdomen; dermabond and peripad to vaginal area; no bleeding noted, report received from Ebony BYRNES and Teetee JIANG
--- NOTE | 2025-01-21 09:28 | SUR.PHASEII ---
0928 Patient meets discharge criteria from recovery, awake and alert, breathing unlabored, vital signs stable, denies pain, dressing intact; no bleeding noted, eating ice chips; denies nausea, assisted with dressing into her clothing by this principal technical writer, discharge instruction given to patient and patients , signed discharge instructions. Patient given all her belongings prior to discharge, transported via wheelchair and left in a private vehicle.
--- NOTE | 2025-01-21 10:45 | ESOP_ITS ---
RE: UGO GOODWIN : 1990 DATE OF OPERATION: 01/21/2025 PREOPERATIVE DIAGNOSIS: Left tubal ectopic . POSTOPERATIVE DIAGNOSIS: Ruptured left tubal ectopic . PROCEDURES PERFORMED: 1. Diagnostic laparoscopy. 2. Left salpingectomy. 3. Evacuation of peritoneal hemorrhage. SURGEON: Sesar Joya DO MARINE FARMER: None. ANESTHESIA: General. ANESTHESIOLOGIST: Ebony Ramon CRNA ESTIMATED BLOOD LOSS: 200 mL. COMPLICATIONS: None. COUNTS: Correct. PATHOLOGY: Left fallopian tube with ectopic . FINDINGS: A 3 x 3 cm left tubal ectopic with adhesions of the fallopian tube to the posterior cul-de-sac. A 200 mL hemoperitoneum with active bleeding noted. Uterus and right fallopian tube and ovary appeared grossly within normal limits. The left ovary appeared grossly within normal limits. DESCRIPTION OF PROCEDURE: After proper informed consent was obtained, the patient was made aware of the risks, complications, alternatives, and benefits of the proposed procedure. She was taken to the operating room where she underwent induction of general anesthesia. She was placed in the dorsal lithotomy position. She was prepped and draped in the usual sterile fashion. A timeout was performed. A sponge stick was placed in the vagina. The physician regowned, gloved, and a 5-mm incision was made in the umbilical fold. With tenting up to the abdomen, a Veress needle was inserted. Saline confirmed intra-abdominal placement. An artificial pneumoperitoneum was created to 12 mmHg. The Veress needle was then removed and a 5 mm trocar was inserted with tenting up the abdomen. The laparoscope-connected video camera was then utilized to visualize the pelvis and the above findings noted. The patient was placed in Trendelenburg with a leftward tilt. The 10 mm incision was made 2 cm above the symphysis pubis and the 10 mm trocar was inserted under direct visualization of the laparoscope. A left lower quadrant incision was made through this 5 mm incision. A 5 mm trocar was inserted under direct visualization of the laparoscope. Using the Simon grasper and the Harmonic 1136 scalpel, the left salpingectomy was performed and hemostasis was achieved. Using the suction mrb engineer, the peritoneal hematoma was evacuated. There was no bleeding at the end of the procedure. She tolerated the procedure well. Counts were correct. The 10 mm trocar was then removed and the 1 cm fascial incision was closed with #0 Vicryl using the Wiliam-Dm needle and then the carbon dioxide was removed from the peritoneal cavity. All trocars were removed. The incisions were hemostatic and they were infiltrated with Marcaine 0.5% with epinephrine and the incisions were closed with 4-0 Monocryl and covered with Dermabond. Attention was then turned to the vagina where the sponge stick was then removed. The patient was reversed from general anesthesia in the supine position and transferred to the recovery room in stable condition. She tolerated the procedure well. Counts were correct. Her blood type was O positive. Discharge instructions were given preoperatively. DT: 08:42:30 TT: 10:44:00 Ref: [id number] - TID: [id number]
== END 2025-01-21 09:28 | disposition home or self-care (01) ==
LOC: SERX 07:43 → S2EX 07:58
PROVIDERS: Nurse Practitioner Family; Emergency Provider Emergency Medicine; Referring Provider Specialist; Visit Provider Obstetrics & Gynecology
PROC: (CPT 49320; principal; 2025-01-21 07:30)
DX: O00.102 Left tubal pregnancy without intrauterine pregnancy (principal); O26.891 Other specified pregnancy related conditions, first trimester; Z3A.01 Less than 8 weeks gestation of pregnancy
CPT/HCPCS: 59151; 36415; 80053; 81001; 84702; 85025; 86850; 86900; 86901; 96360; 99285; A4217; A4649; J0131; J1100; J1171; J2250; J2405; J2704; J3010; J3490; J7030; J0665; J1805